=== PATIENT | male | born 1980 | race Caucasian/White ===

== ENCOUNTER 2016-10-05 07:46 | Inpatient (IN) | payer OTHER ==
--- NOTE | ~2016-10-05 | DS ---
Discharge Summary [place] [id number] [facility] [place] [address] NAME: LUANNE SANDERSON : 76 STATUS : DIS IN PAT#: [id number] AGE: 36 ADM/REG DATE : 10/05/16 MR#: [id number] REPORT SERV DATE: 10/07/16 DICTATED BY: ERIKA FREED DATE: 10/06/16 REPORT STATUS : Draft TRANSCRIBED BY: MODL DATE: 10/06/16 ADMISSION DATE: 10/05/2016 DISCHARGE DATE: 10/06/2016 ADDENDUM: To job #[id number]. There is correction for the previous dictation. The patient did not have any stent insertion done. The patient was transferred to [facility] to get cardiac catheterization. It did not reveal any significant coronary artery disease. Again, this is correction for the previous discharge addendum. The patient was put on heart failure regimen medical treatment and was discharged to home. The Plavix was not on home medication. EKL/MODL Erika Freed M.D. / [id number] CC: Erika Freed M.D.
[~2016-10-05 07:46] MED LIST: ALEVE220 MG PO; COUGH SYRUP OTC PO; MICONAZOLE CREA30 GM TOP; MUCINEX DM PO; MULTIVIT/MIN PO; PROAIR HFA INH; SUDAFED 12HR120 MG PO; VITAMIN C OTC PO
[2016-10-06 05:35] LABS: BASOPHILS 0.4 %; BASOPHILS ABSOLUTE 0.04 10/3/uL (0.0-0.16); EOSINOPHILS 1.9 %; EOSINOPHILS ABSOLUTE 0.18 10/3/uL (0.0-0.53); HEMATOCRIT 47.5 % (40.0-51.0); IMMATURE GRANULOCYTES 0.2 %; IMMATURE GRANULOCYTES ABSOLUTE 0.02 10/3/uL (0.0-0.11); LYMPHOCYTES 33.9 %; LYMPHOCYTES ABSOLUTE 3.18 10/3/uL (0.67-4.30); MEAN CORPUS HGB CONC 33.7 g/dL (32.0-36.0); MEAN CORPUSCULAR HEMOGLOB 29.6 pg (26.0-34.0); MEAN PLATELET VOLUME 10.4 fL (9.2-13.0); MONOCYTES 9.8 %; MONOCYTES ABSOLUTE 0.92 10/3/uL (0.21-1.20); NEUTROPHILS 53.8 %; NEUTROPHILS ABSOLUTE 5.03 10/3/uL (2.02-8.40); PLATELET COUNT 423 10/3/uL (150-400); RBC DISTRIBUTION WIDTH 14.3 % (12.0-16.0); WHITE BLOOD CELLS 9.4 10/3/uL (4.5-10.5)
[2016-10-06 05:40] LABS: MANUAL DIFF NO %
[2016-10-06 05:43] LABS: A/G RATIO 1.1 (0.7-1.9); ALBUMIN 3.5 G/DL (3.5-5.0); CHLORIDE, SERUM 103 MMOL/L (96-112); CO2 (CARBON DIOXIDE) 28 MMOL/L (24-34); CREATININE 1.21 MG/DL (0.70-1.30); GFR AFRICAN AMERICAN 87 ML/MIN (>=60); GFR NON AFRICAN AMERICAN 75 ML/MIN (>=60); GLOBULIN 3.3 G/DL (2.5-4.1); GLUCOSE, SERUM 99 MG/DL (60-99); POTASSIUM, SERUM 4.9 MMOL/L (3.5-5.3); SGOT(AST) 48 U/L (5-40); SGPT(ALT) 103 U/L (5-65); SODIUM, SERUM 139 MMOL/L (135-148); TOTAL PROTEIN 6.8 G/DL (6.0-8.5)
[2016-10-06 05:47] LABS: ALKALINE PHOSPHATASE 182 U/L (45-117); BUN (BLOOD UREA NITROGEN) 25 MG/DL (6-23); TOTAL BILIRUBIN 1.4 MG/DL (0-1.2)
[2016-10-06 05:48] LABS: CALCIUM, SERUM 9.4 MG/DL (8.5-10.4)
[2016-10-06 06:04] LABS: INTERNATIONAL NORMAL RATI 1.1 UNITS (-)
[2016-10-06] MEDS ORDERED: COREG12 PO (14:00)
[2016-10-06] MEDS ORDERED: ZESTRIL10 MG PO (14:01)
[2016-10-06] MEDS ORDERED: BUM1 PO (14:01)
[2016-10-06] MEDS ORDERED: HABIT21 TOP (14:03)
[2016-10-06] MEDS ORDERED: SPIRO25 PO (14:03)
== END 2016-10-06 14:57 | disposition home or self-care (01) | DRG 286 ==
LOC: CORLMH 07:46 → SSU1 09:19
PROVIDERS: Hospitalist
PROC: 4A023N7 Measurement of Cardiac Sampling and Pressure, Left Heart, Percutaneous Approach (ICD-10-PCS; principal; 2016-10-05)
PROC: B2111ZZ Fluoroscopy of Multiple Coronary Arteries using Low Osmolar Contrast (ICD-10-PCS; 2016-10-05)
PROC: B2151ZZ Fluoroscopy of Left Heart using Low Osmolar Contrast (ICD-10-PCS; 2016-10-05)
DX: I42.9 Cardiomyopathy, unspecified (principal); I50.21 Acute systolic (congestive) heart failure; N17.9 Acute kidney failure, unspecified; I24.8 Other forms of acute ischemic heart disease; G47.33 Obstructive sleep apnea (adult) (pediatric); K70.30 Alcoholic cirrhosis of liver without ascites; F10.20 Alcohol dependence, uncomplicated; N18.9 Chronic kidney disease, unspecified; I12.9 Hypertensive chronic kidney disease with stage 1 through stage 4 chronic kidney disease, or unspecified chronic kidney disease; R31.9 Hematuria, unspecified; N20.0 Calculus of kidney; F15.90 Other stimulant use, unspecified, uncomplicated
CPT/HCPCS: 80053; 82140; 83735; 85025; 85610; 93458; 94660; 99152; A9270-GY; C1769; C1887; C1894; J2250; J3010; Q9967